=== PATIENT | female | born 1960 | race Caucasian/White ===

== ENCOUNTER 2017-07-17 14:58 | Emergency (ER) | payer MEDICARE, OTHER ==
[~2017-07-17] VITALS: Ht 162.6 cm; Wt 68.4 kg
[~2017-07-17 14:58] MED LIST: ALBU6.7H INH; BENZ1TAB PO; DEPA250T PO; DICL50 PO; PENI500T PO; TRAM50 PO; [UNRECOGNIZED DRUG - OTHER]
[2017-07-17 15:02] VITALS: BP 105/57; PULSE 92; RESP 18; TEMP 98.7; O2SAT 92
[2017-07-17] MEDS ORDERED: MIRA25TA PO (15:13)
[2017-07-17] MEDS ORDERED: DEPA500T3 PO (15:13)
[2017-07-17] MEDS ORDERED: DIAZ10 PO (15:13)
[2017-07-17] MEDS ORDERED: HYDR-3516 PO (15:13)
[2017-07-17] MEDS ORDERED: AUGM875T3 PO (15:21)
--- NOTE | 2017-07-17 15:22 | PD ---
HPI Chief Complaint: Bite or Sting Time Seen by Provider: 15:16 Travel History International Travel<30 days: No Contact w/Intl Traveler<30days: No Traveled to known affect area: No History of Present Illness HPI 57-year-old female complains of dog bite to right forearm. Patient states that the dog belonged to the neighbors. The dog's immunizations up-to-date. Patient states that the dog bite happened yesterday. Patient is not up-to-date with TD booster. Patient states that she washed the area with some peroxide and applied topical antibiotic on it. PFSH Past Medical History Anxiety: Yes Depression: Yes Diminished Hearing: No Musculoskeletal: Yes (CHRONIC BACK PAIN) Psychiatric: Yes Influenza Vaccination: No ?: Not Menopausal: Yes Tubal Ligation: Yes Past Surgical History Oral Surgery: Yes (POLYPS ON VOCAL CHORDS) Social History Alcohol Use: No Tobacco Use: Yes (1PPD) Substance Use: No Allergies-Medications (Allergen,Severity, Reaction): Coded Allergies: acetaminophen (Unverified Adverse Reaction, Severe, ITCHING, 07/17/17) codeine (Unverified Adverse Reaction, Severe, ITCHING, 07/17/17) oxycodone (Unverified Adverse Reaction, Severe, ITCHING, 07/17/17) Reported Meds & Prescriptions Reported Meds & Active Scripts Active Reported Myrbetriq (Mirabegron) 25 Mg Tab 25 Mg PO DAILY Hydrocodone-Acetamin 5-325 mg (Hydrocodone/Acetaminophen) 5 Mg-325 Mg Tablet 1 Tab PO Q6HR PRN Valium (Diazepam) 10 Mg Tab 10 Mg PO TID PRN Depakote ER (Divalproex Sodium) 500 Mg Don 500 Mg PO HS Review of Systems General / Constitutional: No: Fever Eyes: No: Visual changes HENT: No: Headaches Cardiovascular: No: Chest Pain or Discomfort Respiratory: No: Shortness of Breath Gastrointestinal: No: Abdominal Pain Genitourinary: No: Dysuria Musculoskeletal: No: Pain Skin: No Rash Neurologic: No: Weakness Psychiatric: No: Depression Endocrine: No: Polydipsia Hematologic/Lymphatic: No: Easy Bruising Physical Exam Narrative GENERAL: Well-nourished, well-developed patient. SKIN: Focused skin assessment warm/dry. HEAD: Normocephalic. EYES: No scleral icterus. No injection or drainage. NECK: Supple, trachea midline. No JVD or lymphadenopathy. CARDIOVASCULAR: Regular rate and rhythm without murmurs, gallops, or rubs. RESPIRATORY: Breath sounds equal bilaterally. No accessory muscle use. GASTROINTESTINAL: Abdomen soft, non-tender, nondistended. MUSCULOSKELETAL: No cyanosis, or edema. BACK: Nontender without obvious deformity. No CVA tenderness. Patient has multiple small puncture wounds on the right forearm. Mild redness associate with that. No discharge. No induration. No tenderness on palpation. Data Data Last Documented VS Vital Signs Date Time Temp Pulse Resp B/P (MAP) Pulse Ox O2 Delivery O2 Flow Rate FiO2 07/17/17 15:02 98.7 92 18 105/57 (73) 92 Orders Orders Tetanus/Diphtheria Tox Adult (Tetanus/Di (07/17/17 15:30) Amoxicil-Clavulanate (Augmentin) (07/17/17 15:30) MDM Medical Decision Making Medical Screen Exam Complete: Yes Emergency Medical Condition: Yes Differential Diagnosis Differential diagnosis including dog bite, cellulitis, abscess. Narrative Course 57-year-old female with dog bite right forearm. Td booster given. Augmentin 875 mg p.o. given. Diagnosis Primary Impression: Puncture wound of right forearm Qualified Codes: S51.831A - Puncture wound without foreign body of right forearm, initial encounter Patient Instructions: General Instructions Additional Instructions: Wound care daily. Take Augmentin as directed. Follow-up with personal physician. Return if increasing redness swelling. Med/Other Pt SpecificInfo: Prescription(s) given Scripts Amoxicillin-Clavulanate (Augmentin) 875-125 Mg Tab 1 TAB PO BID for Infection, #14 TAB 0 Refills Prov: Alec Alberto MD 07/17/17 Disposition: 01 DISCHARGE HOME Condition: Stable Alec Alberto MD Jul 17, 2017 15:22
[2017-07-17] MEDS ORDERED: AMOXICILLIN/CLAVULANATE K 875 MG TAB PO ONE (15:30)
[2017-07-17] MEDS ORDERED: TETANUS/DIPHTHERIA TOXOID ADULT 0.5 ML VIAL IM ONE (15:30)
== END 2017-07-17 15:50 | disposition home or self-care (01) ==
LOC: PHEFT 14:58
DX: S51.851A Open bite of right forearm, initial encounter (principal); W54.0XXA Bitten by dog, initial encounter; Z23 Encounter for immunization; F32.9 Major depressive disorder, single episode, unspecified; F41.9 Anxiety disorder, unspecified; F17.210 Nicotine dependence, cigarettes, uncomplicated; Z88.5 Allergy status to narcotic agent; Z79.899 Other long term (current) drug therapy
CPT/HCPCS: 90471; 90714